=== PATIENT | male | born 1970 | race Caucasian/White ===

== ENCOUNTER → 2017-03-23 | Day surgery (SDC) | payer OTHER ==
[2017-03-22 14:03] LABS: BASOPHILS % 0.3 % (0.0-1.0); EOSINOPHILS # (AUTO) 0.1 (0.0-0.4); EOSINOPHILS % 0.7 % (0.0-6.0); HEMATOCRIT 48.8 % (38.2-49.6); LYMPHOCYTES # (AUTO) 3.2 (1.0-3.2); LYMPHOCYTES % 31.6 % (18.0-39.1); MEAN CORPUSCULAR HEMOGLOBIN 30.9 pg (28-32); MEAN CORPUSCULAR HGB CONC 34.8 g/dL (31-35); MEAN CORPUSCULAR VOLUME 88.6 fL (81-99); MONOCYTES # (AUTO) 0.6 (0.2-0.8); MONOCYTES % 5.9 % (4.4-11.3); NEUTROPHILS # (AUTO) 6.2 (2.1-6.9); NEUTROPHILS % 61.2 % (38.7-80.0); PLATELET COUNT 221 x10e3/uL (140-360); RED BLOOD COUNT 5.51 x10e6/uL (4.3-5.7); RED CELL DISTRIBUTION WIDTH 12.2 % (11.7-14.4)
[2017-03-22 14:13] LABS: INR 0.91; PROTHROMBIN TIME 12.7 seconds (11.9-14.5)
[2017-03-22 14:22] LABS: ALANINE AMINOTRANSFERASE 24 IU/L (0-55); ALBUMIN 4.2 g/dL (3.5-5.0); ALBUMIN/GLOBULIN RATIO 1.1 (0.8-2.0); ALKALINE PHOSPHATASE 68 IU/L (40-150); ANION GAP 12.7 mmol/L (8-16); BLOOD UREA NITROGEN 16 mg/dL (7-26); BUN/CREATININE RATIO 14 (6-25); CALCIUM 9.4 mg/dL (8.4-10.2); CARBON DIOXIDE 28 mmol/L (22-29); CHLORIDE 104 mmol/L (98-107); CHOL/HDL RATIO 4.2 (3.9-4.7); CHOLESTEROL 176 MD/DL (0-199); CREATININE, SERUM 1.17 mg/dL (0.72-1.25); EST GLOMERULAR FILTRATION RATE > 60 ML/MIN (60-); GLUCOSE 99 mg/dL (74-118); HDL CHOLESTEROL 42 MG/DL (40-60); LDL CHOLESTEROL 107 MG/DL (60-130); POTASSIUM 4.7 mmol/L (3.5-5.1); SODIUM 140 mmol/L (136-145); TRIGLYCERIDES 133 MG/DL (0-149)
[~2017-03-23] VITALS: Ht 175.3 cm; Wt 97.5 kg
[2017-03-23] VITALS (10 sets, daily range): BP systolic 110–132; BP diastolic 74–85
[~2017-03-23] MED LIST: ARMOUR THYROID60 MG PO; ARMOUR THYROID90 MG PO; AVODART0.5 MG PO; BENTYL10 MG PO; CYMBALTA60 MG PO; FENTANYL CITRATE/PF 100MCG/2 ML INJ ONE; GABAPENTIN300 MG PO; HEPARIN SOD (PORCINE) 1000 UNIT/ML 30ML ONE; HEPARIN SOD/SOD CHLORIDE 2,000 ML ONE; IOPAMIDOL 370 MG/ML 200 ML INFUS..BTL INJ ONE; LEXAPRO10 MG PO; LIDOCAINE HCL 2% LOCAL 20 ML VIAL ONE; METHOCARBAMOL750 MG PO; MIDAZOLAM HCL 2 MG/2 ML VIAL ONE; MULTIVITAMIN PO; NAPROXEN500 MG PO; NEXIUM40 MG; NEXIUM40 MG PO; NITROGLYCERIN/D5W 200 MCG/ML 250 ML ONE; NUVIGIL50 MG PO; PANTOPRAZOLE SO40 MG PO; PHENERGAN25 MG/1 ML; PROPRANOLOL HCL40 MG PO; SIMVASTATIN40 MG PO; SODIUM CHLORIDE 0.9% 1000ML 1,000 ML ONE; VERAPAMIL HCL 2.5 MG/ML 2 ML VIAL ONE; ZOFRAN ODT4 MG SL; [UNRECOGNIZED DRUG - OTHER]
--- NOTE | 2017-03-23 09:49 | Operative Report ---
DATE OF PROCEDURE: March 23, 2017 PROCEDURE INDICATIONS: Abnormal stress test with involved systolic heart failure. Symptoms concerning for unstable angina versus noncardiac pain. PROCEDURES PERFORMED 1. Left heart catheterization. 2. Selective coronary angiography times 2. 3. Right radial TR band hemostasis. ESTIMATED BLOOD LOSS: 5 mL. PROCEDURE COMPLICATIONS: None. PROCEDURE SUMMARY: After consent was obtained, patient was prepped and draped n a sterile fashion. The right radial site was locally infiltrated with 2% lidocaine. With ultrasound guidance, right radial artery was accessed with a single anterior stick, and a 5-Mosotho slender sheath was advanced over a wire. Catheters were advanced. Initially, thick catheter was attempted for engagement. It was felt to due to anatomy that a catheter worked better to engage the ostium of the left main and then the right coronary artery respectively, which was successfully performed with 5-Mosotho after a wire exchange of catheters. The aortic valve was cross clamped for hemodynamic measurements. The following findings were noted: 1. LV pressure was 97/70 with end-diastolic pressure of 15. 2. Aortic pressure was 95/66. 3. Left main large in caliber with luminal irregularities. Gives an LAD of large caliber. Ramus intermedius of medium to large caliber, and a circumflex of small to medium caliber. 4. LAD is large in caliber with luminal irregularities, and gives 2 diagonals and multiple septal perforators. 5. The ramus intermedius has luminal irregularities. 6. The circumflex has luminal irregularities and gives 2 obtuse marginals. 7. The right coronary artery is a dominant vessel that gives 2 RV marginals in the midportion and terminates in small caliber RPDA and RPLV. 8. No left ventriculogram was performed. CONCLUSION: Nonischemic cardiomyopathy, mild systolic heart failure, chronic. No evidence of obstructed coronary artery disease with luminal irregularity in coronary artery tree. RECOMMENDATIONS: Medical management including switch of propranolol to low-dose carvedilol and add low-dose lisinopril as tolerated by blood pressure. Follow up in the clinic in 2-4 weeks. Wean TR band. Job#: [id number] RI
== END | disposition home or self-care (01) ==
LOC: CATH LAB 06:29
PROVIDERS: ATTEND Internal Medicine Cardiovascular Disease
DX: I25.10 Atherosclerotic heart disease of native coronary artery without angina pectoris (principal); I50.22 Chronic systolic (congestive) heart failure; I42.8 Other cardiomyopathies; R94.39 Abnormal result of other cardiovascular function study; Z01.810 Encounter for preprocedural cardiovascular examination; Z01.812 Encounter for preprocedural laboratory examination
CPT/HCPCS: 36415; 77002; 80053; 80061; 85025; 85610; 93005; 93458; C1887; J1644; J2001; J2250; J7030; Q9967; 36140

== ENCOUNTER → 2017-10-03 | Day surgery (SDC) | payer OTHER ==
[~2017-10-03] MED LIST changes: +ARMOUR THYROID PO; +CARVEDILOL3.125 MG PO; -HEPARIN SOD (PORCINE) 1000 UNIT/ML 30ML ONE; -HEPARIN SOD/SOD CHLORIDE 2,000 ML ONE; +HYOSCYAMINE SULFATE 0.5 MG/ML AMP ONE; -IOPAMIDOL 370 MG/ML 200 ML INFUS..BTL INJ ONE; +KETAMINE HCL INJ 50 MG/ML 10 ML VIAL ONE; -LIDOCAINE HCL 2% LOCAL 20 ML VIAL ONE; +LIDOCAINE HCL 2% LOCAL INJ 5 ML SDV VIAL INJ ONE; -NITROGLYCERIN/D5W 200 MCG/ML 250 ML ONE; +PROPOFOL IV EMULSION 10 MG/ML 50 ML VIAL ONE; -SODIUM CHLORIDE 0.9% 1000ML 1,000 ML ONE; +VASCEPA PO; -VERAPAMIL HCL 2.5 MG/ML 2 ML VIAL ONE
--- NOTE | 2017-10-03 11:29 | Operative Report ---
DATE OF PROCEDURE: October 03, 2017 REFERRING PHYSICIAN: Dr. Lewis Glover. PROCEDURES PERFORMED 1. Esophagogastroduodenoscopy with biopsies. 2. Colonoscopy with polypectomy and biopsies. INDICATIONS FOR ESOPHAGOGASTRODUODENOSCOPY: Heartburn, indigestion. INDICATIONS FOR COLONOSCOPY: Colorectal cancer screening, lower abdominal pain, change in bowel habits. MEDICATION: Patient was done under MAC. Please see anesthesiologist's note. PROCEDURE: With patient in the left lateral decubitus position, flexible fiberoptic Olympus gastroscope was introduced into the esophagus under direct visualization without any difficulty. There was some patchy erythema noted in distal esophagus. The scope was then advanced with ease into the stomach. Mucosa overlying the antrum and the body revealed some patchy erythema and low-grade to moderate edema and biopsies were obtained and sent to stain for H. pylori. Pylorus appeared to be of normal contour and shape, was intubated with ease and the scope was advanced all the way to the 2nd portion of the duodenum. Biopsies were obtained from the proximal 2nd portion to rule out sprue considering patient's history of diarrhea. The duodenal bulb appeared to be within normal limits. The scope was then withdrawn back into the stomach and retroflexed and the mucosa overlying the fundus and the cardia appeared to be within normal limits. The scope was then straightened out. The stomach was decompressed. The scope subsequently withdrawn. Patient tolerated the procedure well. IMPRESSIONS 1. Distal esophagitis. 2. Gastritis, biopsied. Biopsy sent to stain for Helicobacter pylori. 3. Rule out sprue. PLAN: Follow up histology. Increase Nexium to 40 mg 1 p.o. a.c. b.i.d. Patient was then turned around. After adequate lubrication of the anal canal, a flexible fiberoptic Olympus colonoscope was inserted into the rectum with ease and advanced all the way to the cecum. One polyp was snared from the cecum. The ileocecal valve was intubated and the scope was advanced into the terminal ileum. Biopsies were obtained. The scope was then withdrawn back into the colon. It was then withdrawn slowly and the ascending colon grossly appeared to be within normal limits. One polyp was hot biopsied. The transverse also apparently grossly appeared to be within normal limits. The mild inflammatory changes were noted in the left colon and multiple random biopsies were obtained. The scope was then retroflexed into the distal rectum and small internal hemorrhoids were noted, none of which was actively bleeding. The scope was then straightened out and was subsequently withdrawn after securing an adequate stool specimen that was sent for the appropriate stool studies. Patient tolerated the procedure well. IMPRESSIONS 1. Cecal polyp, snared. 2. Ascending colon polyp, hot biopsied. 3. Mild patchy left-sided colitis. 4. Internal hemorrhoids, none actively bleeding. PLAN: Follow up histology. Follow up stool studies. Initiate VSL #3 one p.o. daily and Bentyl 10 mg 1 p.o. t.i.d. Patient will need a followup colonoscopy in 3 years. Job#: [id number] TA cc:LEWIS GLOVER MD
[2017-10-03 12:40] LABS: C DIFFICILE TOXIN A&B AMP PROB NEGATIVE (NEGATIVE); WBC,FECAL (FECAL LACTOFERRIN) NEGATIVE (NEGATIVE)
== END | disposition home or self-care (01) ==
LOC: OR 07:29
PROVIDERS: ATTEND Internal Medicine Gastroenterology
DX: K51.50 Left sided colitis without complications (principal); D12.0 Benign neoplasm of cecum; D12.2 Benign neoplasm of ascending colon; K29.70 Gastritis, unspecified, without bleeding; K63.89 Other specified diseases of intestine; K21.9 Gastro-esophageal reflux disease without esophagitis; K20.9 Esophagitis, unspecified; K64.8 Other hemorrhoids; N39.0 Urinary tract infection, site not specified; I10 Essential (primary) hypertension; E78.5 Hyperlipidemia, unspecified; F41.9 Anxiety disorder, unspecified; Z01.810 Encounter for preprocedural cardiovascular examination; Z68.30 Body mass index [BMI] 30.0-30.9, adult
CPT/HCPCS: 43239; 45384; 45385; 83630; 83993; 87045; 87177; 87328; 87493; 93005; J1980; J2001; J2250; 45378; 45380

== ENCOUNTER 2019-05-13 17:09 | Emergency (ER) | payer BC, OTHER ==
[~2019-05-13] VITALS: Ht 175.3 cm; Wt 97.5 kg
[~2019-05-13 17:09] MED LIST changes: -FENTANYL CITRATE/PF 100MCG/2 ML INJ ONE; -HYOSCYAMINE SULFATE 0.5 MG/ML AMP ONE; -KETAMINE HCL INJ 50 MG/ML 10 ML VIAL ONE; -LIDOCAINE HCL 2% LOCAL INJ 5 ML SDV VIAL INJ ONE; -MIDAZOLAM HCL 2 MG/2 ML VIAL ONE; -PROPOFOL IV EMULSION 10 MG/ML 50 ML VIAL ONE
[2019-05-13] MEDS ORDERED: DEXAMETHASONE SOD PHOS 10 MG/1 ML VIAL IV ONE (17:15)
[2019-05-13] MEDS ORDERED: CYCLOBENZAPRINE HCL 10 MG TAB PO ONE (17:30)
[2019-05-13] MEDS ORDERED: HYDROCODONE/APAP 10MG-325MG TAB PO ONE (17:30)
[2019-05-13] MEDS ORDERED: DEXAMETHASONE SOD PHOS 10 MG/1 ML VIAL IM ONE (17:30)
[2019-05-13] MEDS ORDERED: IBUPROFEN 400 MG TAB PO ONE (17:30)
[2019-05-13] MEDS ORDERED: HYDROCODONE/APAP 10MG-325MG TAB ONE (17:32)
--- NOTE | 2019-05-13 18:03 | Diagnostic Imaging Report ---
Exam: Thoracic and lumbar spine views each History: Back pain Comparison: None. Findings: No fracture or malalignment. Mild multilevel thoracic degenerative disc disease with physiologic wedging. Lumbar disc spaces preserved with fusion of L5-S1. No abnormal soft tissue calcification or soft tissue defect. Impression: No acute osseous abnormality Signed by: Dr. Cristóbal Garcia M.D. on 05/13/2019 6:00 PM
== END 2019-05-13 18:43 | disposition home or self-care (01) ==
LOC: ER 17:12
DX: S23.3XXA Sprain of ligaments of thoracic spine, initial encounter (principal); M54.5 Low back pain; X50.0XXA Overexertion from strenuous movement or load, initial encounter; I10 Essential (primary) hypertension; E03.9 Hypothyroidism, unspecified; K21.9 Gastro-esophageal reflux disease without esophagitis; F41.9 Anxiety disorder, unspecified
CPT/HCPCS: 72072; 72110; 99283; J1100